=== PATIENT | female | born 1975 | race African-American/Black ===

== ENCOUNTER 2021-09-29 11:47 | Emergency (ER) | payer BC ==
[~2021-09-29] VITALS: Ht 180.3 cm; Wt 88.5 kg
[2021-09-29] MEDS ORDERED: CYCLOBENZAPRINE5 MG PO (12:48)
[2021-09-29] MEDS ORDERED: IBUPROFEN 600 MG TAB PO STA (12:52)
[2021-09-29] MEDS ORDERED: BACTRIM DS TAB1 EACH PO (13:01)
== END 2021-09-29 13:00 | disposition home or self-care (01) ==
LOC: FSED 12:47
DX: N39.0 Urinary tract infection, site not specified (principal); S39.012A Strain of muscle, fascia and tendon of lower back, initial encounter; X58.XXXA Exposure to other specified factors, initial encounter; Z88.8 Allergy status to other drugs, medicaments and biological substances
CPT/HCPCS: 81003; 99283